=== PATIENT | male | born 1955 | race Caucasian/White ===

== ENCOUNTER → 2018-10-05 | Outpatient (CLI) | payer BC ==
[~2018-10-05] MED LIST: METHADONE5 MG; NORCO; VYVANSE; WELLBUTRIN75 M1; Z FLUOXETINE HCL PO; Z.0.ADDERALL 10 MG10
--- NOTE | 2018-10-05 13:33 | Diagnostic Imaging Report ---
Radiographs of the right hip - 2 views HISTORY: Pain COMPARISON: None available. FINDINGS: Bones: No acute displaced fracture. Osseous alignment is within normal limits. Joints: Scattered degenerative change. No osseous erosion. Soft tissues: The soft tissues appear unremarkable. IMPRESSION: Scattered degenerative change. No osseous erosion. Signed by: Dr. Fabian Nagy M.D. on 10/05/2018 1:30 PM
== END ==
LOC: RAD 11:54
PROVIDERS: ATTEND Internal Medicine
DX: M16.11 Unilateral primary osteoarthritis, right hip (principal)

== ENCOUNTER 2019-10-25 18:07 | Inpatient (IN) | payer BC, OTHER ==
[~2019-10-25] VITALS: Ht 188 cm; Wt 117.9 kg
--- OUTSIDE RECORDS SUMMARY | 2019-10-25 18:12 | XMS REPORT | Continuity of Care Document ---
Author Author [facility] t Organization [facility] Address [address] [place] [address] [place] [phone] Phone Unavailable Care Team Providers Care Dish Machine Operator Name Role Phone JESÚS MONTES Attphys Unavailable Problems This patient has no known problems. Allergies, Adverse Reactions, Alerts This patient has no known allergies or adverse reactions. Medications This patient has no known medications. Procedures This patient has no known procedures. Results Test Description Test Time Test Comments Results Result Comments Source HIP RIGHT 2-3 VW (+/- PELVIS) 2018-10-05 13:29:00 [place] [id number] Patient Name: GONZALEZ KENNEDY MR #: [id number] : 1955 Age/Sex: 63/M Req #: [id number] Adm Physician: Ordered by: JESÚS MONTES MD Report #: [id number] Location: [facility] Room/Bed: Procedure: [id number] DX/HIP RIGHT 2-3 VW (+/- PELVIS) Exam Date: Exam Time: REPORT STATUS: Signed Radiographs of the right hip - 2 views HISTORY: Pain COMPARISON: None available. FINDINGS: Bones: No acute displaced fracture. Osseous alignment is within normal limits. Joints: Scattered degenerative change. No osseous erosion. Soft tissues: The soft tissues appear unremarkable. IMPRESSION: Scattered degenerative change. No osseous erosion. Signed by: Dr. Fabian Nagy M.D. on 10/05/2018 1:30 PM Dictated By: FABIAN NAGY MD, MD 29 Transcribed By: DORIS on 10/05/181329 COPY TO: JESÚS MONTES MD
--- NOTE | 2019-10-25 18:53 | NUR ---
Patient arrived to the floor as a direct admission. Patient is awake alert and oriented x3. He has a dressing to the left foot that is dry and intact. Patient was oriented to the room and explained to him how to use the call light for assistance. He denies needing anything at this time, call light in reach
[2019-10-25 19:31] VITALS: BP 165/102
--- NOTE | 2019-10-25 19:38 | NUR ---
Dr. Schwarz notified of patient's arrival , new orders received.
--- NOTE | 2019-10-25 19:57 | NUR ---
NEW ORDERS RECEIVED BY MD MONTES.
[2019-10-25 20:00] VITALS: BP 165/102
[2019-10-25] MEDS ORDERED: SODIUM CHLORIDE 0.9% 250ML 250 ML ONE (20:22)
--- NOTE | 2019-10-25 20:26 | NUR ---
SPOKE TO MD MONTES. NEW ORDERS RECEIVED.
[2019-10-25] MEDS ORDERED: METHADONE HCL 10 MG TAB PO SCH (20:30)
[2019-10-25 20:37] LABS: BASOPHILS % 0.2 % (0.0-1.0); HEMATOCRIT 35.8 % (38.2-49.6); LYMPHOCYTES # (AUTO) 1.4 (1.0-3.2); LYMPHOCYTES % 10.9 % (18.0-39.1); MEAN CORPUSCULAR HEMOGLOBIN 29.3 pg (28-32); MEAN CORPUSCULAR HGB CONC 33.5 g/dL (31-35); MEAN CORPUSCULAR VOLUME 87.5 fL (81-99); MONOCYTES # (AUTO) 1.1 (0.2-0.8); MONOCYTES % 8.8 % (4.4-11.3); NEUTROPHILS # (AUTO) 10.1 (2.1-6.9); NEUTROPHILS % 79.6 % (38.7-80.0); PLATELET COUNT 254 x10e3/uL (140-360); RED BLOOD COUNT 4.09 x10e6/uL (4.3-5.7); RED CELL DISTRIBUTION WIDTH 12.6 % (11.7-14.4)
[2019-10-25 20:48] LABS: ALANINE AMINOTRANSFERASE 31 IU/L (0-55); ALBUMIN 2.5 g/dL (3.5-5.0); ALBUMIN/GLOBULIN RATIO 0.5 (0.8-2.0); ALKALINE PHOSPHATASE 95 IU/L (40-150); ANION GAP 12.3 mmol/L (8-16); BLOOD UREA NITROGEN 15 mg/dL (7-26); BUN/CREATININE RATIO 16 (6-25); CALCIUM 8.5 mg/dL (8.4-10.2); CARBON DIOXIDE 29 mmol/L (22-29); CHLORIDE 93 mmol/L (98-107); CHOL/HDL RATIO 8.9 (3.9-4.7); CHOLESTEROL 107 MD/DL (0-199); CREATININE, SERUM 0.93 mg/dL (0.72-1.25); EST GLOMERULAR FILTRATION RATE > 60 ML/MIN (60-); GLUCOSE 188 mg/dL (74-118); HDL CHOLESTEROL 12 MG/DL (40-60); LDL CHOLESTEROL 62 MG/DL (60-130); POTASSIUM 3.3 mmol/L (3.5-5.1); SODIUM 131 mmol/L (136-145); TRIGLYCERIDES 165 MG/DL (0-149)
[2019-10-25] MEDS ORDERED: LISINOPRIL 20 MG TAB PO SCH (21:00)
[2019-10-25] MEDS: CEFEPIME 1GM/NS 0.9% 50 ML 50 ML IV SCH (21:06)
[2019-10-25 21:17] VITALS: BP 150/89
[2019-10-25] MEDS: LISINOPRIL 20 MG TAB PO SCH (21:27)
[2019-10-25] MEDS: VANCOMYCIN 1GM/NS 250 ML 250 ML IV SCH (21:49)
--- NOTE | 2019-10-25 22:01 | Diagnostic Imaging Report ---
X-ray left foot. 3 views. HISTORY: Pain. Concern for osteomyelitis COMPARISON: None available. FINDINGS: Bones: No acute displaced fracture. Joints: First MTP osteoarthrosis with joint space loss, osteophyte formation and subchondral sclerosis. Soft tissues: Diffuse soft tissue swelling of the forefoot. A few lucencies projecting over this first metatarsal head region may represent ulceration/soft tissue emphysema. IMPRESSION: Marked soft tissue swelling and probable ulceration at the first MTP of the left foot. No definite radiographic signs of osteomyelitis. Consider a more sensitive evaluation with MRI with and without contrast. Signed by: Chano Ha MD on 10/25/2019 9:58 PM
--- NOTE | 2019-10-25 22:13 | NUR ---
CUPOLA MAN AWARE NEED FOR COVID TEST.
[2019-10-26] VITALS: BP 152/85
[2019-10-26] MEDS ORDERED: PIPER-TAZ 3.375 GM 50 ML IV SCH
[2019-10-26] MEDS ORDERED: LISINOPRIL5 MG PO (00:43)
[2019-10-26] MEDS ORDERED: METHADONE HCL40 MG PO (00:43)
[2019-10-26] MEDS ORDERED: ATORVASTATIN CA20 MG PO (00:43)
[2019-10-26] MEDS ORDERED: METOPROLOL PO (00:43)
--- NOTE | 2019-10-26 03:15 | NUR ---
FOUND PATIENT RESTING IN BED WITH R HAND IV DISCONNECTED CATHETER TIP INTACT. NEW IV STARTED TO R HAND 20G. CDI DRESSING APPLIED. SALINE FLUSH. TOLERATED PROCEDURE WELL. NO ADVERSE SIGNS.
[2019-10-26 04:00] VITALS: BP 121/82
[2019-10-26 06:05] LABS: BASOPHILS % 0.2 % (0.0-1.0); EOSINOPHILS % 0.3 % (0.0-6.0); HEMATOCRIT 37.8 % (38.2-49.6); HEMOGLOBIN 12.2 g/dL (14.0-18.0); LYMPHOCYTES # (AUTO) 2.2 (1.0-3.2); MEAN CORPUSCULAR HEMOGLOBIN 28.8 pg (28-32); MEAN CORPUSCULAR HGB CONC 32.3 g/dL (31-35); MEAN CORPUSCULAR VOLUME 89.4 fL (81-99); MONOCYTES # (AUTO) 1.2 (0.2-0.8); MONOCYTES % 9.3 % (4.4-11.3); NEUTROPHILS # (AUTO) 9.2 (2.1-6.9); NEUTROPHILS % 72.8 % (38.7-80.0); PLATELET COUNT 277 x10e3/uL (140-360); RED BLOOD COUNT 4.23 x10e6/uL (4.3-5.7); RED CELL DISTRIBUTION WIDTH 12.8 % (11.7-14.4)
[2019-10-26 06:20] LABS: ANION GAP 15.2 mmol/L (8-16); BLOOD UREA NITROGEN 14 mg/dL (7-26); BUN/CREATININE RATIO 15 (6-25); CALCIUM 8.6 mg/dL (8.4-10.2); CARBON DIOXIDE 26 mmol/L (22-29); CHLORIDE 96 mmol/L (98-107); CREATININE, SERUM 0.94 mg/dL (0.72-1.25); EST GLOMERULAR FILTRATION RATE > 60 ML/MIN (60-); GLUCOSE 171 mg/dL (74-118); POTASSIUM 3.2 mmol/L (3.5-5.1); SODIUM 134 mmol/L (136-145)
--- NOTE | 2019-10-26 07:11 | NUR ---
REPORT GIVEN TO DAYSHIFT NURSE. ALERT AND RESTING IN BED. NO SIGNS IV INFILTRATION. BED LOCKED AND IN LOW POSITION. CALL LIGHT WITHIN REACH.
[2019-10-26 08:02] VITALS: BP 144/91
[2019-10-26] MEDS ORDERED: DEXTROSE 50% SYRINGE 50 ML IV PRN (08:15)
[2019-10-26 08:23] VITALS: BP 144/91
[2019-10-26] MEDS: CEFEPIME 1GM/NS 0.9% 50 ML 50 ML IV SCH ×2 (08:50→21:31)
--- NOTE | 2019-10-26 08:57 | History and Physical ---
CHIEF COMPLAINT: "My left foot is infected" HISTORY OF PRESENT ILLNESS: This is a 64-year-old white man, who presents to [facility] with a 4-5 day history of worsening right foot redness, pain and swelling. The patient states that initially he began with an infected callus on the plantar aspect of his left foot. The patient states that in last couple of days the wound has become ulcerated and the surrounding erythema and swelling has worsened. He also complains of subjective fever. He denies any chills. The patient was seen by his commercial collector, namely Dr. Galvan yesterday on Friday, October 25, 2019 and was sent to the [facility] Emergency Room. The patient had a plain film of the foot on admission of the left foot that revealed marked soft tissue swelling and probable ulceration of the 1st MTP of the left foot. The radiologist did not appreciate any obvious evidence of osteomyelitis. In the emergency room [place] [address] with 79% segmented neutrophils. Hemoglobin 12 g/dL. Platelet count 254,000. Sedimentation rate 91. The patient's BUN and creatinine are 15 and 0.93 respectively. Potassium is 3.3. The patient was found to have hemoglobin A1c of 8%. The patient's LDL cholesterol is 62 mg/dL. Triglycerides 165 mg/dL. AST and ALT of 46 and 31 respectively. The patient was admitted for further evaluation and treatment. Of note, at the commercial collector's office, the left plantar abscess was incised and drained. Apparently, copious amount of brownish purulent blood tinged drained from this foot abscess. Cultures were sent from the commercial collector's office. REVIEW OF SYSTEMS: GENERAL: Weight has been stable. He has had fever for past few days. No chills. HEENT: No headaches. No visual changes. CARDIOVASCULAR/RESPIRATORY: No chest pain. No shortness of breath. No cough. GI: No nausea, vomiting, or constipation. : No dysuria, hematuria, or incontinence. Denies any nocturia. NEUROMUSCULAR: The patient has severe neuropathy in his bilateral feet and is currently on methadone treatment for pain control concerning this condition. The patient has worsening redness, swelling and pain in the left foot for the past 4-5 days. ALLERGIES: NO KNOWN DRUG ALLERGIES. HOME MEDICATIONS: 1. Atorvastatin 40 mg at bedtime. 2. Lisinopril 20 mg daily. 3. Methadone 40 mg b.i.d. 4. Metoprolol succinate 25 mg daily. 5. Diazepam 5 mg daily prn anxiety. PAST SURGICAL HISTORY: 1. Right inguinal hernia repair. 2. Tonsillectomy. FAMILY HISTORY: His mother suffered from type 2 diabetes mellitus with severe diabetic peripheral neuropathy. His mother also suffered from recurrent diabetic foot ulcers. His mother from congestive heart failure and chronic kidney disease. SOCIAL HISTORY: He is a . He is caring for his two teenage grandchildren. He smokes tobacco sporadically, but chews tobacco on a regular basis. The patient drinks alcohol rarely. The patient is retired. PAST MEDICAL HISTORY: 1. Hypertensive heart disease. 2. Severe peripheral neuropathy. 3. Type 2 diabetes mellitus. 4. Hyperlipidemia. 5. Mild obesity. 6. Tobacco use. 7. Lumbar disc disease. 8. Right hip osteoarthritis. PHYSICAL EXAMINATION: GENERAL: He is awake, alert, fluent, in no distress, very pleasant, very cooperative with exam. VITAL SIGNS: Height 6 feet 2 inches, weight is 260 pounds, BMI 33. Blood pressure was 160/100 yesterday on admission, currently 120/80, pulse is 110 on admission, currently it is 88, respiratory rate 18, temperature is 98.9, but temperature did get as high as 99.7 last night. Ox saturation 98% on room air. INTEGUMENT: Skin is warm and dry. No pallor, jaundice, or diaphoresis. HEENT: Anicteric sclerae. Moist mucous membranes. NECK: Supple. CARDIOVASCULAR: Distant heart sounds. Tachycardic rate, regular rhythm. The patient has S4 gallop. LUNGS: No rales. No rhonchi or wheezes. ABDOMEN: Mildly obese, benign. EXTREMITIES: The patient has an ulcerated wound on the plantar aspect of the left first metatarsal head. There is significant surrounding erythema, swelling and tenderness. NEUROLOGIC: He has no pinprick sensation in the plantar aspect of his feet. DIAGNOSES: 1. Sepsis secondary to left diabetic foot ulcer. 2. Left diabetic foot ulcer with surrounding cellulitis. 3. Type 2 diabetes mellitus with severe neuropathy. 4. Hypertensive heart disease. PLAN: 1. Highly recommend tobacco cessation. 2. Intravenous antibiotics. 3. Tentative incision and drainage of the left diabetic foot ulcer by the commercial collector later this morning. 4. MRI of the left foot. 5. Blood pressure control. 6. Blood glucose control. 7. Pain control. I spent an hour in the care of the patient. MD CITLALY Mercer/BREANNA /[id number] MTDJay
[2019-10-26] MEDS: METHADONE HCL 10 MG TAB PO SCH ×2 (09:00→17:00)
--- NOTE | 2019-10-26 09:22 | Diagnostic Imaging Report ---
EXAM: CHEST SINGLE (PORTABLE) DATE: 10/26/2019 9:01 AM INDICATION: Osteomyelitis, hypertension COMPARISON: None FINDINGS: Lung volumes are low/there is poor inspiratory effort. The trachea is midline. Minimal bibasilar opacities suggestive of atelectasis. The lungs are otherwise symmetrically expanded without evidence for large focal consolidation, pneumothorax, or significant volume pleural effusion. The cardiomediastinal silhouette and pulmonary vasculature are within normal limits. No acute osseous abnormality is identified. IMPRESSION: No acute cardiopulmonary process identified. Signed by: Dr. Juan Prajapati MD on 10/26/2019 9:18 AM
[2019-10-26] MEDS ORDERED: GADOBENATE DIMEGLUMINE 1 ML IV ONE (09:26)
[2019-10-26] MEDS: VANCOMYCIN 1GM/NS 250 ML 250 ML IV SCH (09:29)
[2019-10-26] MEDS ORDERED: BUPIVACAINE HCL 0.5% INJ 30 ML VIAL INJ ONE (10:49)
[2019-10-26] MEDS ORDERED: DEXAMETHASONE SOD PHOS 10 MG/1 ML VIAL ONE (10:49)
[2019-10-26] MEDS ORDERED: BACITRACIN 50,000 UNIT VIAL ONE (10:49)
[2019-10-26] MEDS ORDERED: PROPOFOL IV EMULSION 10 MG/ML 20 ML VIAL ONE (10:52)
[2019-10-26] MEDS ORDERED: SEVOFLURANE INHAL SOLN 250 ML PEN BTL ONE (10:52)
[2019-10-26] MEDS ORDERED: KETOROLAC TROMETHAMINE 30 MG/ML VIAL ONE (10:52)
[2019-10-26] MEDS ORDERED: LIDOCAINE HCL 2% LOCAL INJ 5 ML SDV VIAL INJ ONE (10:52)
[2019-10-26] MEDS ORDERED: ONDANSETRON HCL INJ 2MG/ML 2ML 2 MG/ML VIAL ONE (10:52)
[2019-10-26] MEDS: INSULIN LISPRO 100 UNIT/1 ML 3ML VIAL SQ SCH ×3 (11:30→21:30)
--- NOTE | 2019-10-26 13:38 | Operative Report ---
DATE OF PROCEDURE: 10/26/2019 SURGEON: James Galvan DPM (Char[place]) PREOPERATIVE DIAGNOSIS: Abscess, cellulitis, left foot. POSTOPERATIVE DIAGNOSIS: Abscess, cellulitis, left foot. OPERATIVE PROCEDURE: Extensive I and D, left foot. DESCRIPTION OF PROCEDURE: The patient was placed on the OR table in the supine position. The left lower extremity was prepped and draped in the usual manner. A general anesthetic was administered and hemostasis accomplished using a pneumatic cuff set at 350 mmHg at thigh level. An incision was made on the dorsal medial aspect of the 1st metatarsophalangeal joint extending back to about the distal half of the 1st metatarsal. The incision was deepened. A large amount of purulent exudate was removed with suction. Cultures and sensitivities were taken. With curved mosquito, I probed the wound and I was able to open up an area between the 1st and 2nd metatarsal heads and extending back almost to the distal 1/2 of the metatarsal. Second incision was made on the plantar aspect. The skin was then dissected away from the capsule and the tendons on the plantar aspect. Using a mosquito, the area was probed and opened on both the medial and lateral aspect of the metatarsal head. There was tunneling that went to the wound on top, this was opened also. At this time, the wound was flushed extensively with the Pulsavac with bacitracin antibiotic. The wound was then packed with iodoform gauze. It was left open. Betadine wet-to-dry dressing was placed. At this time, a sterile compression dressing was applied. The pneumatic cuff was then released and a reflex hyperemia was observed to all digits. The patient tolerated the procedure and anesthesia well and left the OR back to his room in good condition with vital signs stable. James Galvan DPM (Charley) SH/MODL /[id number]
--- NOTE | 2019-10-26 14:04 | NUR ---
WOUND CARE CONSULT FOR 64 YO MALE HX OF diabeties, acute osteo TREMAYNE 20 ON CONSERVATIVE PUP STATUS AND INTERVENTIONS AND VISCO MATTRESS LABS: WBC-12.68 HGB_12.2 GLUCOSE-171 SKIN ASSESSMENT COMPLETE PATIENT PRESENTS WITH LEFT FOOT OSTEOMYELITIS LEFT TRANS MET HEAD ULCERATION 3CM X2CM X2CM LEFT POSTERIOR PLANTAR SURFACE ULCERATION 2CM X2CM X1CM DR CORCORAN TO TAKE PATIENT TO SURG FOR I&D TO LEFT FOOT AREAS RECOMMENDATIONS: NURSING TO CONTINUE TO MAINTAIN CONSERVATIVE PUP STATUS AND INTERVENTIONS AND VISCO MATTRESS NURSING TO CONTINUE TO ASSIST PATIENT OUT OF BED FOR MEALS AND MUCH TOLERATED NURSING TO CONTINUE TO ASSIST PATIENT NEEDED WITH MEALS AND NUTRITIONAL SUPPLEMENTS TO ENSURE PROPER REQUIREMENTS FOR HEALING NURSING TO CONTINUE TO OFFLOAD FEET AND HEELS NEEDED WITH PILLOW SUSPENSION WHEN IN BED NURSING TO RECONSULT WOUND CARE FOR ANY POST SURGICAL NEEDS DEEMED BY Addendum: 10/26/19 at 1410 by Tyler Eden RN Amended: Links added.
--- NOTE | 2019-10-26 14:55 | NUR ---
Patient arrived back to the floor from PACU and MRI. S/P I and D to left foot, dressing is dry and intact
[2019-10-26] MEDS ORDERED: METOPROLOL SUCC25 MG PO (15:46)
--- NOTE | 2019-10-26 15:55 | Diagnostic Imaging Report ---
TECHNIQUE: Magnetic resonance imaging of the LEFT foot was performed WITH and WITHOUT injected contrast. CONTRAST: 20 mL of Multihance HISTORY: Left foot osteomyelitis COMPARISON: Left foot radiographs 10/25/2019 DISCUSSION: Bone: Cortical destruction with bone marrow edema, T1 hypointense replacement, and scattered areas of enhancement along the plantar aspect at the head of the first metatarsal and adjacent base of the first proximal phalanx, compatible with osteomyelitis. Similar signal changes of osteomyelitis involving the hallux sesamoid bones. Curvilinear T2 hyperintense, T1 hypointense bone marrow signal changes tracking through the medullary cavity to the head of the first proximal phalanx distally and to the base of the first metatarsal proximally. No avid enhancement correlating to these bone marrow signal changes. Findings may represent medullary infarcts however remain suspicious for extension of osteomyelitis. Joints: No joint malalignment or dislocation. Complex fluid and extensive enhancement throughout the first MTP joint, consistent with septic arthritis. No additional joint effusions. Ligaments/tendons: Collateral ligaments of the first MTP joint are poorly visualized secondary to extensive surrounding inflammatory changes. Remaining visualized intrinsic ligaments of the forefoot appear grossly intact. Extensor hallucis longus tendon is not well visualized as it courses dorsal to the first MTP joint, may be torn or focally destroyed by extensive infection. Flexor hallucis longus tendon is torn and/or destroyed by infection at the level of the first MTP joint with discontinuity measuring approximately 3 cm in length. Remaining flexor and extensor tendons appear grossly intact. However, fluid tracking along the flexor tendons proximally, may represent reactive changes or infectious tenosynovitis. Soft Tissues: Plantar soft tissue ulcer underlying the first MTP joint and tracking between the hallux sesamoid bones to the first MTP joint and head of the first metatarsal. Similar superficial soft tissue irregularity along the medial aspect of the first MTP joint, may represent additional ulcer or postsurgical change. Extensive soft tissue edema and enhancement surrounding the first MTP joint and tracking proximally to the base of the first tarsal, consistent with reactive changes and/or cellulitis. Diffuse muscular edema throughout the forefoot, likely represents a combination of reactive changes and/or infectious myositis. IMPRESSION: 1. Plantar soft tissue ulcer with associated septic arthritis of the first MTP joint and osteomyelitis at the head of the first metatarsal, adjacent base of the first proximal phalanx, and hallux sesamoid bones. 2. Additional bone marrow signal changes without avid enhancement tracking through the medullary cavity of the first proximal phalanx and first metatarsal, may represent bone marrow infarcts and/or early extension of osteomyelitis. 3. Extensive soft tissue edema and enhancement surrounding the first MTP joint and extending proximally to the base of the first metatarsal, likely represents a combination of reactive changes, cellulitis, and possible infectious myositis. 4. Focal discontinuity of the flexor hallucis longus tendon and possibly the extensor hallucis longus tendon, likely related to focal destruction from infection. Additional fluid tracking along the remaining flexor tendons, may represent reactive changes or infectious tenosynovitis. Signed by: Kulwinder Woodard MD on 10/26/2019 3:52 PM
[2019-10-26 16:15] VITALS: BP 121/86
[2019-10-26] MEDS: METFORMIN HCL 500 MG TAB PO SCH (16:51)
[2019-10-26] MEDS: LISINOPRIL 20 MG TAB PO SCH (16:52)
--- NOTE | 2019-10-26 19:25 | NUR ---
BEDSIDE SHIFT REPORT RECEIVED. PATIENT IS RESTING IN BED, AAOX3. RESP EVEN AND UNLABORED. NO ACUTE DISTRESS NOTED. S/P I&D TO 1ST LEFT TOE, DRESSING DRY AND INTACT. EDUCATED PT ABOUT FALL PRECAUTIONS. PT VERBALIZED UNDERSTANDING. CALL LIGHT WITH IN EASY REACH. INSTRUCTED PT TO USE CALL LIGHT FOR ALL THE NEEDS. BED IS LOW AND LOCKED. SIDE RAILS X2. PT DENIES NEEDS AT THIS TIME. CONTINUE TO MONITOR CLOSELY.
[2019-10-26] MEDS ORDERED: MORPHINE SULFATE INJ 10 MG/ML ONE (19:30)
[2019-10-26] MEDS ORDERED: POTASSIUM CHLORIDE 20 MEQ TAB CR PO SCH (19:30)
[2019-10-26] MEDS ORDERED: MIDAZOLAM HCL 2 MG/2 ML VIAL ONE (19:30)
[2019-10-26 20:00] VITALS: BP 122/74
[2019-10-26] MEDS ORDERED: POTASSIUM CHLORIDE 20 MEQ TAB CR PO ONE (21:00)
[2019-10-26] MEDS ORDERED: VANCOMYCIN 1GM/NS 250 ML 250 ML IV SCH (22:15)
[2019-10-26] MEDS: CEFEPIME 2 GM/NS 0.9% 100 ML 100 ML IV SCH (23:58)
[2019-10-27] VITALS (9 sets, daily range): BP systolic 131–171; BP diastolic 77–91
--- NOTE | 2019-10-27 03:30 | NUR ---
PATIENT REFUSED BED ALARM
[2019-10-27 06:16] LABS: BASOPHILS % 0.3 % (0.0-1.0); EOSINOPHILS # (AUTO) 0.1 (0.0-0.4); EOSINOPHILS % 0.7 % (0.0-6.0); HEMOGLOBIN 10.7 g/dL (14.0-18.0); LYMPHOCYTES # (AUTO) 2.3 (1.0-3.2); LYMPHOCYTES % 19.5 % (18.0-39.1); MEAN CORPUSCULAR HGB CONC 31.5 g/dL (31-35); MEAN CORPUSCULAR VOLUME 92.1 fL (81-99); MONOCYTES % 8.5 % (4.4-11.3); NEUTROPHILS # (AUTO) 8.3 (2.1-6.9); NEUTROPHILS % 70.4 % (38.7-80.0); PLATELET COUNT 224 x10e3/uL (140-360); RED BLOOD COUNT 3.69 x10e6/uL (4.3-5.7); RED CELL DISTRIBUTION WIDTH 13.2 % (11.7-14.4)
[2019-10-27 06:36] LABS: ALANINE AMINOTRANSFERASE 28 IU/L (0-55); ALBUMIN 2.1 g/dL (3.5-5.0); ALBUMIN/GLOBULIN RATIO 0.5 (0.8-2.0); ALKALINE PHOSPHATASE 107 IU/L (40-150); ANION GAP 10.1 mmol/L (8-16); BLOOD UREA NITROGEN 16 mg/dL (7-26); BUN/CREATININE RATIO 18 (6-25); CARBON DIOXIDE 30 mmol/L (22-29); CHLORIDE 102 mmol/L (98-107); CREATININE, SERUM 0.87 mg/dL (0.72-1.25); EST GLOMERULAR FILTRATION RATE > 60 ML/MIN (60-); GLUCOSE 115 mg/dL (74-118); POTASSIUM 4.1 mmol/L (3.5-5.1); SODIUM 138 mmol/L (136-145)
--- NOTE | 2019-10-27 06:52 | NUR ---
RECEIVED BEDSIDE SHIFT REPORT FROM OFF GOING NURSE. PATIENT IS IN STABLE CONDITION, IV LINE PATENT. CALL LIGHT WITHIN REACH. BED IN THE LOWEST POSITION.
[2019-10-27] MEDS: INSULIN LISPRO 100 UNIT/1 ML 3ML VIAL SQ SCH ×4 (07:30→20:53)
[2019-10-27] MEDS: ACETAMINOPHEN 325 MG TAB PO PRN (08:50)
[2019-10-27] MEDS: LISINOPRIL 20 MG TAB PO SCH ×2 (08:51→16:41)
[2019-10-27] MEDS: METHADONE HCL 10 MG TAB PO SCH ×2 (08:51→16:42)
[2019-10-27] MEDS: METFORMIN HCL 500 MG TAB PO SCH ×2 (08:51→16:41)
[2019-10-27] MEDS ORDERED: DESVENLAFAXINE SUCCINATE 50 MG TAB.SR.24H PO SCH (09:45)
--- NOTE | 2019-10-27 09:47 | Progress Note ---
DATE: 10/27/2019 SUBJECTIVE: This is a 64-year-old male with past medical history of type 2 diabetes, peripheral neuropathy, who is postoperative day #1, left foot incision and drainage procedure. The patient relates to minimal soreness to his left foot at this time. Currently, denies nausea, vomiting, fever, chills, chest pain, or shortness of breath. No other pedal complaints and no acute issues overnight. PHYSICAL EXAMINATION: GENERAL: Alert and oriented x3, in no apparent distress. VITAL SIGNS: Temperature 100.2, heart rate 86, respiratory rate 20, blood pressure 137/86, pulse ox is 98% on room air. EXTREMITIES: Problem focused lower extremity physical exam, vascular, dorsalis pedis and posterior tibial pulses are faintly palpable to the left lower extremity greater than 2 cm of erythema, edema, and warmth are noted at the patient's 1st MPJ. Hair growth is noted to the digits. NEUROLOGICAL: Sensation is absent to light touch bilateral. MUSCULOSKELETAL: Mild pain on palpation to the left 1st metatarsophalangeal joint. DERMATOLOGICAL: Deep probing ulceration is noted to the plantar aspect of the patient's left 1st metatarsophalangeal joint, which is fibrotic. Incision site is noted to the dorsal aspect of the patient's left 1st metatarsophalangeal joint. Upon removal of packing, there is necrotic tissue, which probes deep to the level of bone and down the 1st interspace. There continues to be greater than 2 cm of dawn-wound erythema, edema, and warmth. LABORATORY DATA: White blood cell count is 11.7, hemoglobin 10.7, hematocrit 34.0, and platelet count 224. Sedimentation rate is 91. Sodium 138, potassium 4.1, chloride 102, CO2 30, BUN 16 and creatinine 0.87, glucose 125. Hemoglobin A1c is 8.0. Coronavirus not detected. MRI reveals soft tissue ulcer with associated septic arthritis of the 1st metatarsal joint, osteomyelitis of the head of the 1st metatarsal, base of the proximal phalanx, hallux, and sesamoid bones. Bone marrow signal changes are noted through the medullary cavity of the entire 1st metatarsal, which may be indicative of osteomyelitis to the entire 1st metatarsal. Focal discontinuity of the flexor hallucis longus and extensor hallucis longus tendon, likely due to septic joint and previous infection tracking up tendons. ASSESSMENT: 1. Left foot septic 1st metatarsophalangeal joint with osteomyelitis of the 1st metatarsal. 2. Type 2 diabetes with peripheral neuropathy. 3. Hypertension. 4. Hyperlipidemia. PLAN: The patient was seen and evaluated, discussed condition and treatment options with the patient in detail. At this time, the dressing was changed in a Betadine wet-to-dry fashion while packing the wounds. At this time, we will continue current antibiotics with vancomycin and cefepime. I had a lengthy discussion with the patient about amputation followed by IV antibiotics and local wound care as a method of limb salvage. The patient agrees and understands. ARELI Weinstein/BREANNA /[id number]
[2019-10-27] MEDS: CEFEPIME 2 GM/NS 0.9% 100 ML 100 ML IV SCH ×2 (10:11→21:55)
--- NOTE | 2019-10-27 10:23 | Progress Note ---
DATE: 10/27/2019 CHIEF COMPLAINT/HISTORY OF PRESENT ILLNESS: This is a 64-year-old white man, whose primary treating diagnosis is acute left foot osteomyelitis. The patient underwent incision and drainage of the left foot abscess yesterday on 10/26/2019. This was performed by his c winforms developer, namely Dr. Galvan. The patient tolerated the procedure quite well. Cultures were sent, but they are still pending. His blood cultures have not reveal any growth. The patient's white blood cell count today is 11,700 with 70% segmented neutrophils. Hemoglobin 10.7 g/dL. Sedimentation rate 91. The patient's BUN and creatinine today 16 and 0.87. The patient's serum glucose is 125 mg/dL. The patient underwent an MRI of the left foot yesterday on , October 26, 2019, which revealed findings consistent with osteomyelitis of the left 1st metatarsal bone as well as septic arthritis in the 1st metatarsophalangeal joint. The MRI revealed findings consistent with osteomyelitis invading into the bone marrow of the 1st proximal phalanx and 1st metatarsal. It also appears that his tendons are also involved. The patient voices no complaints today. He is somewhat somnolent, but according to nursing staff, he received his oral methadone this morning. During this hospitalization, he was found to have a hemoglobin A1c of 8%. His LDL cholesterol is 62 mg/dL. HDL cholesterol is 12 mg/dL. Triglycerides 165 mg/dL. Yesterday, the patient's lactic acid level was 1.0 and repeated 4 hours later, it was 1.6. REVIEW OF SYSTEMS: As per HPI. PHYSICAL EXAMINATION: GENERAL: He is somnolent, but arousable. He did not appear to be in any distress. He has a flat depressed affect. VITAL SIGNS: Height 6 feet and 2 inches, weight is 260 pounds, BMI 33. Blood pressure is 130/86, pulse 86, respiratory rate 18, oxygen 92% on room air, temperature 100.2. INTEGUMENT: Skin is warm and dry. No pallor, jaundice, and diaphoresis. HEENT: Anterior sclerae with moist mucous membranes. NECK: Supple. CARDIOVASCULAR: Distant heart sounds. Tachycardic rate, regular and rhythm. The patient has an S4 gallop. LUNGS: No rales, rhonchi, or wheezes. ABDOMEN: Mildly obese, yet benign. EXTREMITIES: Left foot is currently dressed. No edema in legs. NEUROLOGIC: He has no pinprick sensation to plantar aspect of his feet. DIAGNOSES: 1. Sepsis secondary to left foot osteomyelitis with surrounding cellulitis. 2. Left foot (1st metatarsal) osteomyelitis with surrounding cellulitis. 3. Severe idiopathic peripheral neuropathy. 4. Type 2 diabetes mellitus. 5. Hypertensive heart disease. 6. Situational depression/major depressive disorder. PLAN: 1. Continue intravenous antibiotics, namely cefepime and vancomycin. 2. Increase vancomycin from 1 g every 12 hours to 1.25 mg intravenous every 12 hours. 3. Increase cefepime from 1 g intravenous every 12 hours to 2 g intravenous every 12 hours. 4. We will start atorvastatin 20 mg every night since he may have peripheral artery disease. 5. Continue lisinopril for blood pressure control. 6. Continue metformin 500 mg twice a day for glucose control. 7. Monitor glucose levels. 8. Empathetic listening. 9. Reassurance. 10. Informed the patient that he would likely benefit from an antidepressant due to his situational depression. 11. We will order a peripherally inserted central catheter since the patient will likely require outpatient intravenous antibiotic therapy for a minimum of six weeks. 12. I discussed this case with Dr. Galvan, this morning concerning long-term intravenous antibiotic therapy and discharge planning. TIME SPENT: I spent 45 minutes in the care of this patient. MD CITLALY Mercer/BREANNA /[id number] MALATHI
--- NOTE | 2019-10-27 11:00 | NUR ---
GERMAN WITH INSURANCE DISCHARGE PLANNING CALLED AND GAVE [phone] FOR ANY ASSISTANCE.
[2019-10-27] MEDS: VANCOMYCIN HCL 1.25 GM in SODIUM CHLORIDE 0.9% 250ML 250 ML IV SCH ×2 (11:30→22:55)
--- NOTE | 2019-10-27 18:50 | NUR ---
PICC LINE NURSE IN TO PLACE LINE ON PATIENT. PATIENT BEING AGGRESSIVE AND VERY DISRESPECTFUL. HE YELLED AT PICC NURSE AND FLOOR NURSE. HE ASKED BOTH OF US TO "GET THE F OUT OF THE ROOM". BOTH PICC NURSE AND FLOOR NURSE LEFT THE ROOM. DR. MONTES NOTIFIED.
--- NOTE | 2019-10-27 19:03 | NUR ---
attempted to set up and place PICC on pt with RN Adina Britt present, opened kit and pt proceeded to want to stop procedure and re-read consent, pt started getting out of bed and yelled at both myself and staff adina Tracey, pt directly told me to get out of the room and I can come back tommorrow and do line for all he cares, pt very upset, not cooperating for line placement, again, nurse Adina Britt present to witness situation, told nurse Holden to call DIT back once and if pt agrees and becomes cooperative for PICC placement
--- NOTE | 2019-10-27 19:34 | NUR ---
BEDSIDE SHIFT REPORT GIVEN TO ONCOMING NURSE. PATIENT IS RESTING IN BED. NO ACUTE DISTRESS NOTED. CALL LIGHT WITHIN REACH. BED IN THE LOWEST.
--- NOTE | 2019-10-27 20:20 | NUR ---
SPOKE WITH DR. CORCORAN REGARDING PATIENT'S PROCEDURE. HE VOICED THAT HE WILL PERSONALLY BE THERE IN THE MORNING TO SPEAK WITH THE PATIENT AND HIS SON IN DETAIL. DR. CORCORAN ALSO SPOKE WITH PATIENT ON PHONE TO CONFIRM.
[2019-10-27] MEDS: ATORVASTATIN 20 MG TAB PO SCH (21:00)
--- NOTE | 2019-10-27 21:50 | NUR ---
PATIENT RESTING IN BED, NO SIGNS OF DISTRESS NOTED. IV ANTIBIOTICS ARE RUNNING AT ORDERED RATE AND PATIENT VOICES NO PAIN AT THIS TIME. LEFT FOOT IS WRAPPED, DRESSING IS CLEAN, DRY, AND INTACT. BED IS IN LOWEST POSITION, BOTH SIDE RAILS ARE UP, CALL LIGHT IS WITHIN EASY REACH, WILL CONTINUE TO MONITOR.
[2019-10-28] VITALS (7 sets, daily range): BP systolic 98–164; BP diastolic 41–95
[2019-10-28 05:59] LABS: BASOPHILS % 0.3 % (0.0-1.0); EOSINOPHILS # (AUTO) 0.2 (0.0-0.4); EOSINOPHILS % 1.8 % (0.0-6.0); HEMATOCRIT 34.9 % (38.2-49.6); HEMOGLOBIN 11.3 g/dL (14.0-18.0); LYMPHOCYTES # (AUTO) 2.3 (1.0-3.2); LYMPHOCYTES % 19.4 % (18.0-39.1); MEAN CORPUSCULAR HEMOGLOBIN 30.2 pg (28-32); MEAN CORPUSCULAR HGB CONC 32.4 g/dL (31-35); MEAN CORPUSCULAR VOLUME 93.3 fL (81-99); MONOCYTES # (AUTO) 0.9 (0.2-0.8); MONOCYTES % 7.8 % (4.4-11.3); NEUTROPHILS # (AUTO) 8.4 (2.1-6.9); NEUTROPHILS % 69.8 % (38.7-80.0); PLATELET COUNT 247 x10e3/uL (140-360); RED BLOOD COUNT 3.74 x10e6/uL (4.3-5.7); RED CELL DISTRIBUTION WIDTH 13.1 % (11.7-14.4)
[2019-10-28 06:18] LABS: ANION GAP 12.8 mmol/L (8-16); BLOOD UREA NITROGEN 10 mg/dL (7-26); BUN/CREATININE RATIO 13 (6-25); CALCIUM 8.5 mg/dL (8.4-10.2); CARBON DIOXIDE 28 mmol/L (22-29); CHLORIDE 103 mmol/L (98-107); CREATININE, SERUM 0.75 mg/dL (0.72-1.25); EST GLOMERULAR FILTRATION RATE > 60 ML/MIN (60-); GLUCOSE 96 mg/dL (74-118); POTASSIUM 3.8 mmol/L (3.5-5.1); SODIUM 140 mmol/L (136-145)
--- NOTE | 2019-10-28 07:20 | NUR ---
The pt. is in bed awake. The off-going nurse reports that the pt.in willing to have the PICC line placed today.
[2019-10-28] MEDS: INSULIN LISPRO 100 UNIT/1 ML 3ML VIAL SQ SCH ×4 (07:30→22:30)
[2019-10-28] MEDS: METFORMIN HCL 500 MG TAB PO SCH ×2 (08:46→17:08)
[2019-10-28] MEDS: LISINOPRIL 20 MG TAB PO SCH ×2 (08:46→17:10)
[2019-10-28] MEDS: METHADONE HCL 10 MG TAB PO SCH ×2 (08:46→17:09)
--- NOTE | 2019-10-28 09:42 | NUR ---
Dr. Galvan here and spoke with the pt about the PICC line placement, pending surgery and also changed the dressing at this time.
[2019-10-28] MEDS: CEFEPIME 2 GM/NS 0.9% 100 ML 100 ML IV SCH ×2 (10:59→22:30)
[2019-10-28] MEDS: VANCOMYCIN HCL 1.25 GM in SODIUM CHLORIDE 0.9% 250ML 250 ML IV SCH ×2 (10:59→23:24)
--- NOTE | 2019-10-28 15:32 | NUR ---
PT GETTING PICC LINE PLACED, UNABLE TO DO DPA AT PRESENT
--- NOTE | 2019-10-28 16:02 | Diagnostic Imaging Report ---
EXAMINATION: CHEST XRAY LINE PLACEMENT INDICATION: PICC line placement with verification of position. COMPARISON: 10/26/2019. FINDINGS: TUBES and LINES: Interval placement of a right upper extremity PICC with distal tip projected at the cavoatrial junction, in adequate position. LUNGS: Lungs are well inflated. Increased density about the right hilum, unchanged. Slight prominence of the central pulmonary vasculature. PLEURA: No pleural effusion or pneumothorax. HEART AND MEDIASTINUM: The cardiomediastinal silhouette is unremarkable. BONES AND SOFT TISSUES: No acute osseous lesion. Soft tissues are unremarkable. UPPER ABDOMEN: No free air under the diaphragm. IMPRESSION: Interval placement of a right upper extremity PICC with distal tip projected at the cavoatrial junction, in adequate position. Signed by: Dr. Rajwinder Link M.D. on 10/28/2019 3:59 PM
--- NOTE | 2019-10-28 17:40 | Progress Note ---
DATE: Internal Medicine progress Note. SUBJECTIVE: The patient is in no complaint. PHYSICAL EXAMINATION: VITAL SIGNS: Blood pressure 148/88, temperature 97.9, heart rate 90 per minute, respiratory rate 20 per minute, oxygen saturation 95%. HEART: Regular rhythm. Normal S1, S2. LUNGS: Clear bilaterally. ABDOMEN: Soft. EXTREMITIES: Show no edema except for the left foot. LABORATORY DATA: Coronavirus test is not detected. LABORATORY DATA: CBC, white blood count 11.99, hemoglobin 11.3, hematocrit 34.9, platelet count 247,000. On the BMP; sodium 140, potassium 3.8, chloride 103, CO2 of 28, BUN 10, creatinine 0.75, glucose 184, calcium 8.6. Vancomycin level 5.4. MICROBIOLOGY: Blood culture negative for 48 hours. Gram stain of the wound culture negative growth, Staphylococcus aureus, which is still a preliminary report. IMPRESSION: 1. Osteomyelitis of the foot. 2. Uncontrolled hypertension. 3. Anemia of chronic disease. 4. Sepsis. 5. Peripheral neuropathy. 6. Hypertensive heart disease. PLAN OF TREATMENT: Continue with current IV antibiotic therapy, which includes cefepime 2 g IV twice a day, vancomycin 1.25 g IV twice a day, Tylenol 650 mg q.6 hours as needed, Lipitor 20 mg at bedtime. Continue to monitor blood sugar a.c. and at bedtime. Lisinopril 20 mg twice a day, metformin 500 mg twice a day, methadone 40 mg twice a day. TIME SPENT: 45 minutes. MD AUDI Shearer/BREANNA /[id number]
--- NOTE | 2019-10-28 20:15 | NUR ---
PATIENT RESTING IN BED, NO SIGNS OF DISTRESS NOTED. NEW PICC LINE INTACT WITH IV ANTIBIOTICS ARE RUNNING AT ORDERED RATE AND PATIENT VOICES NO PAIN AT THIS TIME. LEFT FOOT IS WRAPPED, DRESSING IS CLEAN, DRY, AND INTACT. BED IS IN LOWEST POSITION, BOTH SIDE RAILS ARE UP, CALL LIGHT IS WITHIN EASY REACH, WILL CONTINUE TO MONITOR.
--- NOTE | 2019-10-28 20:30 | Progress Note ---
DATE: 10/28/2019 He is admitted to Dr. Vinny Schwarz. The patient was resting comfortably in bed. He did relate [id number] pain in his left foot. On clinical exam, the foot still is very swollen, erythematous. It is not as hot as usual. The patient is afebrile. His blood pressure is a little elevated. His labs, the white blood count was 12, and on micro, he has grown Staph aureus. The foot was re-dressed with Betadine wet-to-dry dressing. I discussed in detail with the patient the plan for going forward on Wednesday indicated that we would take about half of the distal aspect of the 1st metatarsal and the entire 1st toe. We will evaluate the wound at that time to be sure it has not migrated to the 2nd metatarsal head. my plan is to put vancomycin beads in the wound and also put some in the medullary canal of the 1st metatarsal. The patient is okay with this. He understands that there is a fair chance that this may not heal and further amputation will be necessary. I also advised him that if somebody in his family would like to talk with me, they are welcome to call. S ARELI Toure (Charley)/BREANNA /[id number]
[2019-10-28] MEDS: ATORVASTATIN 20 MG TAB PO SCH (22:30)
[2019-10-29] VITALS (8 sets, daily range): BP systolic 118–157; BP diastolic 75–91
[2019-10-29] MEDS: INSULIN LISPRO 100 UNIT/1 ML 3ML VIAL SQ SCH ×4 (07:30→21:50)
--- NOTE | 2019-10-29 07:45 | NUR ---
The pt. has been consented for planned procedure with Dr. Cornejo on 10/30/2019. He offers no complaint or concerns at this time.
[2019-10-29] MEDS: METFORMIN HCL 500 MG TAB PO SCH ×2 (09:03→16:57)
[2019-10-29] MEDS: METHADONE HCL 10 MG TAB PO SCH ×2 (09:04→16:57)
[2019-10-29] MEDS: LISINOPRIL 20 MG TAB PO SCH ×2 (09:05→16:57)
[2019-10-29] MEDS: CEFEPIME 2 GM/NS 0.9% 100 ML 100 ML IV SCH ×2 (10:38→23:20)
[2019-10-29] MEDS: VANCOMYCIN HCL 1.25 GM in SODIUM CHLORIDE 0.9% 250ML 250 ML IV SCH ×2 (10:38→23:51)
[2019-10-29 10:49] LABS: BASOPHILS % 0.4 % (0.0-1.0); EOSINOPHILS # (AUTO) 0.4 (0.0-0.4); EOSINOPHILS % 3.6 % (0.0-6.0); HEMATOCRIT 34.8 % (38.2-49.6); HEMOGLOBIN 10.7 g/dL (14.0-18.0); LYMPHOCYTES # (AUTO) 2.4 (1.0-3.2); LYMPHOCYTES % 23.4 % (18.0-39.1); MEAN CORPUSCULAR HEMOGLOBIN 28.9 pg (28-32); MEAN CORPUSCULAR HGB CONC 30.7 g/dL (31-35); MEAN CORPUSCULAR VOLUME 94.1 fL (81-99); MONOCYTES # (AUTO) 0.9 (0.2-0.8); MONOCYTES % 9.1 % (4.4-11.3); NEUTROPHILS # (AUTO) 6.3 (2.1-6.9); NEUTROPHILS % 62.4 % (38.7-80.0); PLATELET COUNT 274 x10e3/uL (140-360); RED CELL DISTRIBUTION WIDTH 13.2 % (11.7-14.4)
--- NOTE | 2019-10-29 16:49 | Progress Note ---
DATE: Internal Medicine Progress Note SUBJECTIVE: The patient is doing well. No significant complaint. PHYSICAL EXAMINATION: HEART: Regular rhythm. Normal S1, S2 sound. LUNGS: Clear bilaterally. ABDOMEN: Soft. EXTREMITIES: Dressing on left foot. VITAL SIGNS: Blood pressure 136/78, temperature 38.6, heart rate 76 per minute, respiratory rate 19 per minute and O2 saturation 97%. LABORATORY DATA: On the CBC; white blood count 10.06, hemoglobin 10.7, hematocrit 34.8, and platelet count 274,000. On the BMP; sodium 140, potassium 3.8, chloride 103, CO2 of 28, BUN 10, creatinine 0.75, and glucose 96, last blood sugar was 107. Blood culture negative x72 hours. Wound culture showed Proteus mirabilis and Staphylococcus aureus that are pretty much sensitive to all antibiotics except nitrofurantoin. IMPRESSION: 1. Osteomyelitis of the foot. 2. Uncontrolled hypertension. 3. Anemia of chronic disease. 4. Sepsis. 5. Peripheral neuropathy. 6. Hypertensive heart disease. PLAN OF TREATMENT: We are going to continue cefepime 2 g IV twice a day, vancomycin 1.5 g IV twice a day. Continue Tylenol 650 mg q.6 hours as needed for mild pain and Lipitor 20 mg daily. Continue lisinopril 20 mg twice a day, metformin 500 twice a day, and methadone 40 mg twice a day. Continue to monitor blood sugar before meals and at bedtime. MD AUDI Shearer/BREANNA /[id number]
[2019-10-29] MEDS: ATORVASTATIN 20 MG TAB PO SCH (21:50)
--- NOTE | 2019-10-29 21:50 | NUR ---
PATIENT IN BED, NO SIGNS OF DISTRESS NOTED. NEW PICC LINE INTACT WITH IV ANTIBIOTICS ARE RUNNING AT ORDERED RATE AND PATIENT VOICES NO PAIN AT THIS TIME. LEFT FOOT IS WRAPPED, DRESSING IS CLEAN, DRY, AND INTACT. PATIENT IS GETTING READY FOR SHOWER AND IS AWARE OF PROCEDURE TOMORROW MORNING. BED IS IN LOWEST POSITION, BOTH SIDE RAILS ARE UP, CALL LIGHT IS WITHIN EASY REACH, WILL CONTINUE TO MONITOR.
--- NOTE | 2019-10-29 22:00 | NUR ---
consultation infectious disease consult Patient seen and examined chart reviewed Events noted Chief complaint My left foot is infected" HISTORY OF PRESENT ILLNESS: This is a 64-year-old white man, who presents to [facility] with a 4-5 day history of worsening right foot redness, pain and swelling. the patient came to the emergency room he was seen by internal medicine patient is being admitted. The records revealed : The patient states that initially he began with an infected callus on the plantar aspect of his left foot. The patient states that in last couple of days the wound has become ulcerated and the surrounding erythema and swelling has worsened. He also complains of subjective fever. He denies any chills. The patient was seen by his type mapper, namely Dr. Galvan yesterday on Wednesday, October 25, 2019 and was sent to the [facility] Emergency Room. The patient had a plain film of the foot on admission of the left foot that revealed marked soft tissue swelling and probable ulceration of the 1st MTP of the left foot. The radiologist did not appreciate any obvious evidence of osteomyelitis. In the emergency room patient [place] [id number] with 79% segmented neutrophils. Hemoglobin 12 g/dL. Platelet count 254,000. Sedimentation rate 91. The patient's BUN and creatinine are 15 and 0.93 respectively. Potassium is 3.3. The patient was found to have hemoglobin A1c of 8%. The patient's LDL cholesterol is 62 mg/dL. Triglycerides 165 mg/dL. AST and ALT of 46 and 31 respectively. The patient was admitted for further evaluation and treatment. , the left plantar abscess was incised and drained. Apparently, copious amount of brownish purulent blood tinged drained from this foot abscess. Cultures were sent from the type mapper's office. patient was sent here where he is being admitted to start IV antibiotic Cultures are not available but laboratory data reviewed X-ray and MRI reviewed plans for surgery on Wednesday also noted REVIEW OF SYSTEMS: All are within normal limits except for mentioned above GENERAL: Weight has been stable. He has had fever for past few days. No chills. HEENT: No headaches. No visual changes. CARDIOVASCULAR/RESPIRATORY: No chest pain. No shortness of breath. No cough. GI: No nausea, vomiting, or constipation. : No dysuria, hematuria, or incontinence. Denies any nocturia. NEUROMUSCULAR: The patient has severe neuropathy in his bilateral feet and is currently on methadone treatment for pain control concerning this condition. The patient has worsening redness, swelling and pain in the left foot for the past 4-5 days. ALLERGIES: NO KNOWN DRUG ALLERGIES. HOME MEDICATIONS: 1. Atorvastatin 40 mg at bedtime. 2. Lisinopril 20 mg daily. 3. Methadone 40 mg b.i.d. 4. Metoprolol succinate 25 mg daily. 5. Diazepam 5 mg daily prn anxiety. PAST SURGICAL HISTORY: 1. Right inguinal hernia repair. 2. Tonsillectomy. FAMILY HISTORY: His mother suffered from type 2 diabetes mellitus with severe diabetic peripheral neuropathy. His mother also suffered from recurrent diabetic foot ulcers. His mother from congestive heart failure and chronic kidney disease. SOCIAL HISTORY: He is a . He is caring for his two teenage grandchildren. He smokes tobacco sporadically, but chews tobacco on a regular basis. The patient drinks alcohol rarely. The patient is retired. PAST MEDICAL HISTORY: 1. Hypertensive heart disease. 2. Severe peripheral neuropathy. 3. Type 2 diabetes mellitus. 4. Hyperlipidemia. 5. Mild obesity. 6. Tobacco use. 7. Lumbar disc disease. Physical examination Patient is alert oriented does not seem to be in acute distress but stable afebrile HEENT normocephalic not pale not icteric neck supple no lymphadenopathy Chest clear bilateral Heart S1-S2 Abdomen soft pulse are present extremities no edema skin there is no rash The foot dressing was noted impression Osteomyelitis of the left foot Is growing gram-positive and gram-negative is currently on vancomycin and cefepime await culture and sensitivity Surgery is going on Wednesday will discuss with podiatry The final recommendations on antibiotic depending on the cultures and surgery and progress of the patient Vascular workup is recommended were discussed with internal medicine if not done recently
[2019-10-30] VITALS (8 sets, daily range): BP systolic 115–153; BP diastolic 65–98
[2019-10-30 05:35] LABS: BASOPHILS % 0.4 % (0.0-1.0); EOSINOPHILS # (AUTO) 0.3 (0.0-0.4); EOSINOPHILS % 2.9 % (0.0-6.0); HEMATOCRIT 32.2 % (38.2-49.6); LYMPHOCYTES # (AUTO) 2.5 (1.0-3.2); LYMPHOCYTES % 22.8 % (18.0-39.1); MEAN CORPUSCULAR HEMOGLOBIN 31.4 pg (28-32); MEAN CORPUSCULAR HGB CONC 34.2 g/dL (31-35); MONOCYTES # (AUTO) 0.9 (0.2-0.8); MONOCYTES % 7.8 % (4.4-11.3); NEUTROPHILS # (AUTO) 7.1 (2.1-6.9); NEUTROPHILS % 64.9 % (38.7-80.0); PLATELET COUNT 257 x10e3/uL (140-360); RED CELL DISTRIBUTION WIDTH 13.1 % (11.7-14.4)
[2019-10-30 05:53] LABS: ALANINE AMINOTRANSFERASE 33 IU/L (0-55); ALBUMIN 2.2 g/dL (3.5-5.0); ALBUMIN/GLOBULIN RATIO 0.5 (0.8-2.0); ALKALINE PHOSPHATASE 98 IU/L (40-150); ANION GAP 10.3 mmol/L (8-16); BLOOD UREA NITROGEN 11 mg/dL (7-26); BUN/CREATININE RATIO 14 (6-25); CALCIUM 8.3 mg/dL (8.4-10.2); CARBON DIOXIDE 28 mmol/L (22-29); CHLORIDE 102 mmol/L (98-107); CREATININE, SERUM 0.76 mg/dL (0.72-1.25); EST GLOMERULAR FILTRATION RATE > 60 ML/MIN (60-); GLUCOSE 92 mg/dL (74-118); POTASSIUM 3.3 mmol/L (3.5-5.1); SODIUM 137 mmol/L (136-145)
--- NOTE | 2019-10-30 06:09 | NUR ---
PATIENT HAS LEFT FOR PROCEDURE, NO SIGNS OF DISTRESS NOTED.
[2019-10-30] MEDS ORDERED: VANCOMYCIN HCL 1 GM VIAL ONE (06:31)
[2019-10-30] MEDS ORDERED: DEXAMETHASONE SOD PHOS INJ 4 MG/ML VIAL ONE (06:31)
[2019-10-30] MEDS ORDERED: BUPIVACAINE HCL 0.5% INJ 30 ML VIAL INJ ONE (06:31)
[2019-10-30] MEDS ORDERED: BACITRACIN 50,000 UNIT VIAL ONE (06:31)
--- NOTE | 2019-10-30 07:00 | NUR ---
SHIFT REPORT RECEIVED FROM THE MEDICAL AFFAIRS SPECIALIST RN. PT IS AT OR PER THE REPORT.
--- NOTE | 2019-10-30 07:15 | NUR ---
infectious disease progress note Patient seen and examined chart reviewed medication reviewed also W data reviewed cultures no swelling noted noted Patient with no new complaints Patient is alert oriented vitals stable afebrile HEENT normocephalic not. Check neck supple chest clear bilateral heart S1-S2 Abdomen soft both are present extremities no edema Foot noted Please refer to the wound care Osteomyelitis Diabetes. Sepsis secondary to left foot osteomyelitis with surrounding cellulitis. 2. Left foot (1st metatarsal) osteomyelitis with surrounding cellulitis. 3. Severe idiopathic peripheral neuropathy. 4. Type 2 diabetes mellitus. 5. Hypertensive heart disease. 6. Situational depression/major depressive disorder. hypercholesterolemia Will changed to Zosyn Surgery today Obtain intraoperative surgery we will follow
[2019-10-30] MEDS: INSULIN LISPRO 100 UNIT/1 ML 3ML VIAL SQ SCH ×4 (07:30→19:57)
--- NOTE | 2019-10-30 08:10 | NUR ---
PT BACK TO THE UNIT FROM PACU. PT LEFT FOOT DRESSING CDI. ELEVATED BLE WITH PILLOWS. EDUCATED PT ABOUT FALL PRECAUTIONS. PT VERBALIZED UNDERSTANDING. BED IS LOW AND LOCKED. SIDE RAILS X2. CALL LIGHT WITH IN EASY REACH. BED ALARM IS ON. ALL SAFETY MEASURES IN PLACE. PT DENIES NEEDS AT THIS TIME.
[2019-10-30] MEDS: MORPHINE SULFATE 2 MG/ML SYR 1ML ONE ×2 (08:12→09:26)
--- NOTE | 2019-10-30 08:30 | NUR ---
PAGED DR. MONTES REGARDING PT K LEVEL 3.3.
--- NOTE | 2019-10-30 08:54 | Diagnostic Imaging Report ---
EXAMINATION: FOOT LEFT AP LAT INDICATION: Postoperative COMPARISON: None FINDINGS: AP and lateral images of the left foot demonstrate postoperative findings of partial first ray amputation at the level of the first metatarsal shaft. Radiopaque densities in the amputation bed consistent with graft material. Small amount of subcutaneous soft tissue emphysema may postoperative. No unexpected fracture. Alignment appears anatomic. IMPRESSION: Postoperative findings of partial first ray amputation. Signed by: Corey Munson MD on 10/30/2019 8:50 AM
[2019-10-30] MEDS: METFORMIN HCL 500 MG TAB PO SCH ×2 (09:00→16:31)
[2019-10-30] MEDS: METHADONE HCL 10 MG TAB PO SCH ×2 (09:27→16:32)
[2019-10-30] MEDS ORDERED: POTASSIUM CHLORIDE 10MEQ EA PO SCH ×2 (09:30→11:30)
[2019-10-30] MEDS: LISINOPRIL 20 MG TAB PO SCH ×2 (09:35→16:32)
--- NOTE | 2019-10-30 10:13 | NUR ---
Spoke to pt regarding need for outpatient IV antibiotics. Pt is agreeable. Choice letter signed for 1. [facility]. [facility] 3. [facility] Copy of choice letter given to pt. Signed copy placed in chart. Will send referral once order for IV abx received.
--- NOTE | 2019-10-30 10:55 | NUR ---
Received IV abx order. Referral faxed to [facility] at [phone] / . Megan with [facility] was informed of referral and anticipated dc for tomorrow.
--- NOTE | 2019-10-30 11:18 | Progress Note ---
DATE: 10/30/2019 CHIEF COMPLAINT/HISTORY OF PRESENT ILLNESS: This is a 64-year-old white man, whose primary treating diagnosis is left diabetic foot ulcer with surrounding cellulitis and osteomyelitis. Today, the patient underwent amputation of the left great toe as well as distal aspect of the left first metatarsal bone. The patient tolerated the surgery quite well. The patient's white blood cell count today is 10,900 with 64% segmented neutrophils. The patient's hemoglobin is 11 g/dL. The patient's vancomycin trough history is 18.1. Today, the patient was found to have potassium of 3.3. The patient's AST and ALT were 42 and 33, respectively. The patient's albumin level was low at 2.2 g/dL. REVIEW OF SYSTEMS: As per HPI. PHYSICAL EXAMINATION: GENERAL: He is awake, alert, and fully oriented. He is pleasant and cooperative with exam. VITAL SIGNS: Height 6 feet 2 inches, weighs 206 pounds, BMI 33. Blood pressure is 126/80, pulse 86, respiratory rate 18, oxygen saturation 97% on room air, and temperature 98.2. INTEGUMENT: Skin is warm and dry. Slight pallor. No jaundice or diaphoresis. HEENT: Anicteric sclerae. Moist mucous membranes. NECK: Supple. CARDIOVASCULAR: Distant heart sounds. Regular rate and rhythm. LUNGS: No rales. No rhonchi. No wheezes. ABDOMEN: Mildly obesity and benign. EXTREMITIES: The patient's left foot is currently dressed. NEUROLOGIC: Intact except he has no pinprick sensation to plantar aspect of his feet. DIAGNOSES: 1. Left diabetic foot abscess with cellulitis/osteomyelitis. 2. Status post left great toe/distal first metatarsal amputation. 3. Type 2 diabetes mellitus. 4. Severe peripheral neuropathy. 5. Lpwsdjcq-sc-xhqvrr protein-calorie malnutrition. 6. Hypertensive heart disease. 7. Mild obesity, BMI 33. PLAN: 1. Replete potassium. 2. Continue intravenous antibiotics. 3. Arrange outpatient intravenous antibiotic therapy, specifically vancomycin 1.5 g intravenous daily for four weeks, coupled with oral levofloxacin 750 mg daily for a total of 6 weeks. 4. We ordered arterial Doppler ultrasound of the lower extremities for peripheral artery disease. 5. Appreciate Infectious Disease input. 6. Discharge planning for tomorrow, Thursday October 31, 2019. MD BO Mercer /[id number]
[2019-10-30] MEDS: PIPER-TAZ 3.375 GM 50 ML IV SCH ×3 (11:57→23:45)
--- NOTE | 2019-10-30 12:23 | Operative Report ---
DATE OF PROCEDURE: 10/30/2019 SURGEON: Tierney Cornejo DPM PREOPERATIVE DIAGNOSES: Left foot osteomyelitis with abscess formation, septic joint 1st metatarsophalangeal joint. POSTOPERATIVE DIAGNOSES: Left foot osteomyelitis with abscess formation, septic joint 1st metatarsophalangeal joint. PLANNED PROCEDURE: Partial 1st ray amputation with debridement of all necrotic soft tissue and bone with implantation of antibiotic beads. BEAUTICIAN APPRENTICE: Tierney Cornejo DPM. ANESTHESIA: General with a postoperative block consisting of 10 mL of 0.5% Marcaine plain. HEMOSTASIS: Pneumatic thigh tourniquet set at 350 mmHg for a total time of approximately 30 minutes. MATERIALS: 1. Vancomycin. 2. Impregnated antibiotic beads. 3. 3-0 nylon. ESTIMATED BLOOD LOSS: Less than 10 mL. PATHOLOGY: Left partial 1st ray sent for gross specimen. DESCRIPTION OF PROCEDURE: The patient was seen in the preoperative waiting area where the correct procedure was site were identified. The patient was brought to the operating room and placed on the operating table in supine position. General anesthesia was initiated. At this time, a well-padded pneumatic tourniquet was placed about the patient's left thigh. The left foot, ankle, and leg were then scrubbed, prepped, and draped in the usual aseptic manner. The left foot, ankle, and leg were exsanguinated with an Esmarch bandage and the pneumatic thigh tourniquet was inflated to 350 mmHg for a total time of approximately 30 minutes. Attention was directed to the medial aspect of the patient's left foot, where a large deep ulceration is noted to the plantar aspect of the left 1st metatarsophalangeal joint and a previous incision site was noted to the dorsal aspect of the left 1st metatarsophalangeal joint. There continues to be greater than 2 cm of periwound erythema, edema and warmth to the level of approximately the ankle joint. The decision was made to proceed with a partial 1st ray amputation at this point. Utilizing a #15 blade, a linear incision was made along the dorsal medial aspect of the patient's left 1st metatarsal extending to the metatarsophalangeal joint. At which point, became two converging semi-elliptical incisions at level of the joint converging on the lateral aspect of the joint. Utilizing a bone clamp, the distal hallux was grasped and disarticulated the joint. There was noted to be a significant amount of purulent drainage. The proximal phalanx of the hallux was completely soft, necrotic and grayish discoloration. This was passed off to the back table. The incision site was then carried proximally to the level of approximately the midshaft 1st metatarsal which was again soft necrotic to the level approximately midshaft. Utilizing a sagittal saw, an osteotomy was performed in the midshaft of the 1st metatarsal the distal aspect was disarticulated and passed off to the back table. Next, utilizing a 15 blade, the wound was debrided of all necrotic and devitalized tissue including the flexor hallucis longus, extensor hallucis longus tendons and both sesamoid bones. These were all sent for gross specimen to pathology. The wound was then copiously irrigated with sterile saline mixed with bacitracin. Next, per manufacture protocol, vancomycin impregnated antibiotic beads were placed in the open wound. Utilizing 3-0 nylon, the plantar wound was debrided, excised and reapproximated utilizing simple interrupted sutures with 3-0 nylon. Next, the dorsal wound was then debrided of all necrotic and devitalized tissue. The wound edges were prepped for closure by removing all dog-ears and debulking fat. The wound was then reapproximated utilizing simple interrupted sutures with 3-0 nylon. The incision site was then dressed with Adaptic, 4x4s, Kerlix, Richi wrap, and a postop shoe. The patient was then transferred to the postoperative recovery unit with vital signs stable and vascular status intact. The patient was then transferred back to the floor for postoperative monitoring, pain control, and IV antibiotics. The Podiatry Service will continue to monitor as an inpatient. The patient tolerated the procedure and anesthesia well. The patient was transferred to the postoperative recovery unit with vital signs stable and vascular status intact. The patient was monitored there for a short period time before being sent home with the following written and oral instructions. 1. Keep the dressing clean, dry, and intact. 2. The patient is to remain nonweightbearing in a postop shoe, to avoid excessive ambulation until being seen in the office. Dictated by Tierney Cornejo DPM S F (ARELI Martínez/BREANNA /[id number]
[2019-10-30] MEDS ORDERED: FENTANYL CITRATE/PF 100MCG/2 ML INJ ONE (14:39)
--- NOTE | 2019-10-30 19:00 | NUR ---
RECEIVED PATIENT IN BEDSIDE SHIFT REPORT. PATIENT RESTING IN BED AT THIS TIME. NO PAIN REPORTED. REMINDED PATIENT TO KEEP FOOT ELEVATED ON A PILLOW. NO S&S OF DISTRESS NOTED. BED LOCKED IN LOWEST POSITION, SIDE RAILS UXP2, CALL LIGHT IN REACH.
--- NOTE | 2019-10-30 19:04 | NUR ---
BEDSIDE SHIFT REPORT RECEIVED FROM THE REGULATORY SUBMISSIONS ASSOCIATE RN. PT DENIED FURTHER NEEDS.
[2019-10-30] MEDS: ATORVASTATIN 20 MG TAB PO SCH (20:34)
[2019-10-30] MEDS: ACETAMINOPHEN 325 MG TAB PO PRN (23:50)
[2019-10-31] VITALS: BP 139/96
[2019-10-31 04:00] VITALS: BP_SYST 117; BP_SYST 146; BP_DIAS 69; BP_DIAS 97
[2019-10-31] MEDS: PIPER-TAZ 3.375 GM 50 ML IV SCH (05:56)
[2019-10-31 05:59] LABS: BASOPHILS % 0.4 % (0.0-1.0); EOSINOPHILS # (AUTO) 0.2 (0.0-0.4); EOSINOPHILS % 2.4 % (0.0-6.0); HEMATOCRIT 33.6 % (38.2-49.6); HEMOGLOBIN 10.8 g/dL (14.0-18.0); LYMPHOCYTES % 30.4 % (18.0-39.1); MEAN CORPUSCULAR HEMOGLOBIN 30.8 pg (28-32); MEAN CORPUSCULAR HGB CONC 32.1 g/dL (31-35); MEAN CORPUSCULAR VOLUME 95.7 fL (81-99); MONOCYTES # (AUTO) 0.7 (0.2-0.8); MONOCYTES % 7.3 % (4.4-11.3); NEUTROPHILS # (AUTO) 5.7 (2.1-6.9); NEUTROPHILS % 58.1 % (38.7-80.0); PLATELET COUNT 261 x10e3/uL (140-360); RED BLOOD COUNT 3.51 x10e6/uL (4.3-5.7); RED CELL DISTRIBUTION WIDTH 13.4 % (11.7-14.4)
[2019-10-31 06:18] LABS: ANION GAP 11.9 mmol/L (8-16); BLOOD UREA NITROGEN 11 mg/dL (7-26); BUN/CREATININE RATIO 14 (6-25); CALCIUM 8.4 mg/dL (8.4-10.2); CARBON DIOXIDE 27 mmol/L (22-29); CHLORIDE 104 mmol/L (98-107); CREATININE, SERUM 0.81 mg/dL (0.72-1.25); EST GLOMERULAR FILTRATION RATE > 60 ML/MIN (60-); GLUCOSE 83 mg/dL (74-118); POTASSIUM 3.9 mmol/L (3.5-5.1); SODIUM 139 mmol/L (136-145)
[2019-10-31] MEDS: INSULIN LISPRO 100 UNIT/1 ML 3ML VIAL SQ SCH (07:30)
[2019-10-31 07:52] VITALS: BP 148/80
--- NOTE | 2019-10-31 08:59 | NUR ---
HIMANSHU Randhawa with [facility] will be here between 10 and 11 today to provide bedside teaching to pt.
[2019-10-31] MEDS: METFORMIN HCL 500 MG TAB PO SCH (09:17)
[2019-10-31] MEDS: METHADONE HCL 10 MG TAB PO SCH (09:18)
[2019-10-31] MEDS: LISINOPRIL 20 MG TAB PO SCH (09:18)
[2019-10-31 09:59] VITALS: BP 148/80
--- NOTE | 2019-10-31 11:13 | Discharge Summary ---
ADMIT DIAGNOSES: 1. Sepsis secondary to left foot abscess with surrounding cellulitis. 2. Left foot abscess/ulcer with surrounding cellulitis. 3. Type 2 diabetes mellitus. 4. Severe peripheral neuropathy. 5. Hypertensive heart disease. 6. Mild obesity, BMI 33. DISCHARGE DIAGNOSES: 1. Sepsis secondary to acute left foot osteomyelitis with surrounding cellulitis, resolved. 2. Status post extensive incision and drainage of left foot abscess. 3. 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 4. Proteus mirabilis and methicillin-sensitive Staphylococcus aureus infected left foot osteomyelitis with surrounding cellulitis, resolving. 5. Dyslipidemia. 6. Hypertensive heart disease. 7. Type 2 diabetes mellitus. 8. Severe peripheral neuropathy. 9. Minimal left lower leg peripheral artery disease. 10. Mild obesity, BMI 33. HOSPITAL COURSE: This is a 64-year-old white man, who was initially admitted to [facility] with diagnosis of sepsis secondary to diabetic left foot abscess with surrounding cellulitis. During this hospitalization he was seen by Podiatry namely Dr. Galvan, who initially performed extensive incision and drainage of the left foot abscess. Copious amount of purulent material was drained from this abscess. The cultures grew Proteus mirabilis and methicillin-sensitive Staphylococcus aureus bacterial species. The patient improved clinically with intravenous vancomycin and cefepime. The patient was also seen by Infectious Disease specialist, Dr. Valiente, during this hospitalization. The patient was found to have a sedimentation rate of 91 and a C-reactive protein level of 117. During this hospitalization, the patient was found to have a hemoglobin A1c of 8%. Moreover, the patient was found to have LDL cholesterol 62 mg/dL and triglyceride level 165 mg/dL. HDL was 12 mg/dL. The patient's albumin level was 2.5 g/dL during this hospitalization. The patient started on metformin 500 mg twice a day for glucose control, which was quite effective. Also, during this hospitalization, the patient underwent MRI of the left foot, which revealed extensive osteomyelitis of the left 1st metatarsal bone that encompassed the 1st proximal phalanx, 1st metatarsal as well as involvement of the tendons. Moreover, the MRI revealed findings consistent with septic joint of the 1st metatarsal joint. The patient tolerated this surgery well. Thus during this hospitalization the patient underwent amputation of the left 1st ray with debridement of all necrotic soft tissue and bone with implantation of antibiotic beads (vancomycin). The patient tolerated surgery quite well. During this hospitalization, the patient had a peripherally inserted central catheter placed with expectation of a long-term outpatient intravenous antibiotic therapy. During this hospitalization, the patient underwent an arterial Doppler ultrasound of the lower extremities that revealed normal flow on the right lower extremity, but did reveal some below the knee disease in the left, but overall flow was adequate. The gas furnace installer who interpreted the left lower extremity arterial Doppler ultrasound recommended outpatient angiography if a diabetic foot ulcer was present. Prior to discharge, outpatient intravenous antibiotic therapy was arranged through an infusion Patient Home Monitoring. CONDITION ON DISCHARGE: Stable. DISCHARGE MEDICATIONS: 1. Vancomycin 1.5 g intravenous daily for four weeks. 2. Levofloxacin 750 mg orally daily for six weeks. 3. Metformin 500 mg b.i.d. 4. Lisinopril 20 mg b.i.d. 5. Aspirin 81 mg daily. 6. Atorvastatin 20 mg q.h.s. 7. Methadone 40 mg b.i.d. FOLLOWUP INSTRUCTIONS: The patient instructed to follow up with Dr. Galvan within 5 days and with myself, Dr. Schwarz within two weeks. Once again, outpatient intravenous antibiotic therapy was arranged. MD CITLALY Mercer/BREANNA /[id number] MTDD
[2019-10-31] MEDS ORDERED: ONDANSETRON HCL INJ 2MG/ML 2ML 2 MG/ML VIAL IV ONE (12:17)
[2019-10-31] MEDS ORDERED: LIDOCAINE HCL 2% LOCAL INJ 5 ML SDV VIAL INJ ONE (12:17)
[2019-10-31] MEDS ORDERED: PROPOFOL IV EMULSION 10 MG/ML 20 ML VIAL IV ONE (12:17)
--- NOTE | 2019-10-31 12:18 | NUR ---
Discharge education provided emphasizing the need to follow-up with PCP and other consulting doctors. Verbalized understanding. Discharge packet and home medications prescription given. Right upper arm PICC in placed, intact with alcohol impregnated cover on. Patient is going home with the PICC line and home abx. Transported via wheelchair to private vehicle with all personal belongings are taken.
[2019-10-31 12:25] VITALS: BP 156/90
--- NOTE | 2019-10-31 12:40 | NUR ---
Syd[place], RN with [facility] provided bedside teaching to pt. Medications will be delivered this evening. Home health is set up with [facility] 11/01/19. . Per Dr. Cornejo, pt to leave dressing intact, Follow up in office in 5-7 days. Home messi information given to pt and asked that pt call HH if he does not hear from them.
== END 2019-10-31 12:18 | disposition home or self-care (01) | DRG 853 ==
LOC: MED/SURG2 18:07
PROVIDERS: ADMIT Internal Medicine; ATTEND Internal Medicine
PROC: 0JBR0ZZ Excision of Left Foot Subcutaneous Tissue and Fascia, Open Approach (ICD-10-PCS; 2019-10-26)
PROC: 0J9R0ZZ Drainage of Left Foot Subcutaneous Tissue and Fascia, Open Approach (ICD-10-PCS; principal; 2019-10-26 11:30)
PROC: 02HV33Z Insertion of Infusion Device into Superior Vena Cava, Percutaneous Approach (ICD-10-PCS; 2019-10-28)
PROC: 0Y6Q0Z0 Detachment at Left 1st Toe, Complete, Open Approach (ICD-10-PCS; 2019-10-30)
PROC: 3E0V329 Introduction of Other Anti-infective into Bones, Percutaneous Approach (ICD-10-PCS; 2019-10-30)
DX: A41.9 Sepsis, unspecified organism (principal); E43 Unspecified severe protein-calorie malnutrition; L97.429 Non-pressure chronic ulcer of left heel and midfoot with unspecified severity; L03.116 Cellulitis of left lower limb; M86.8X7 Other osteomyelitis, ankle and foot; Z16.24 Resistance to multiple antibiotics; E13.621 Other specified diabetes mellitus with foot ulcer; Z11.59 Encounter for screening for other viral diseases; E11.40 Type 2 diabetes mellitus with diabetic neuropathy, unspecified; F17.200 Nicotine dependence, unspecified, uncomplicated; E66.01 Morbid (severe) obesity due to excess calories; Z68.33 Body mass index [BMI] 33.0-33.9, adult; I11.9 Hypertensive heart disease without heart failure; D63.8 Anemia in other chronic diseases classified elsewhere; E11.69 Type 2 diabetes mellitus with other specified complication; B96.4 Proteus (mirabilis) (morganii) as the cause of diseases classified elsewhere; B95.61 Methicillin susceptible Staphylococcus aureus infection as the cause of diseases classified elsewhere; F43.21 Adjustment disorder with depressed mood
CPT/HCPCS: 36415; 36569; 71045; 80048; 80053; 80061; 80202; 82948; 83036; 83605; 85025; 85651; 86140; 87040; 87071; 87075; 87186; 87205; 88304; 88307; 88311; 93925; 97139; C1713; J0692; J1100; J1885; J2001; J2250; J2270; J2405; J2543; J3010; J3370; J7050; U0002

== ENCOUNTER → 2020-08-15 | Outpatient (CLI) | payer BC ==
[~2020-08-15] MED LIST changes: +ATORVASTATIN CA20 MG PO; +LISINOPRIL5 MG PO; +METHADONE HCL40 MG PO; +METOPROLOL PO; +METOPROLOL SUCC25 MG PO
== END ==
LOC: RAD 16:42
PROVIDERS: ATTEND Internal Medicine
DX: M16.11 Unilateral primary osteoarthritis, right hip (principal)

== ENCOUNTER → 2020-09-30 | Outpatient (CLI) | payer BC | LOC: RAD 13:20 | PROVIDERS: ATTEND Internal Medicine | DX: Z01.818 Encounter for other preprocedural examination (principal) | CPT/HCPCS: 71046 ==

== ENCOUNTER → 2020-10-10 | Outpatient (CLI) | payer BC ==
[~2020-10-10] MED LIST changes: +ASPIRIN81 MG PO; +CELECOXIB 200 MG CAP ONE; +DEXAMETHASONE SOD PHOS 10 MG/1 ML VIAL ONE; +GABAPENTIN 300 MG CAP ONE; +ROPIVACAINE 246.25 MG, EPINEPHRINE HCL 1:1000 1ML 0.5 MG, CLONIDINE HCL 0.08 MG, KETORO... INJ ONE; +SODIUM CHLORIDE 0.9% 500ML 0 ML ONE; +SODIUM CHLORIDE 0.9% 50ML 100 ML ONE; +TRANEXAMIC ACID 1,000 MG/10 ML ML ONE; +Vancomycin IV 0 MG ONE
== END ==
LOC: LAB 10:30 → OR 10-15 06:25 → EDSTATUS 10-15 07:30
PROVIDERS: ATTEND Specialist
DX: M16.11 Unilateral primary osteoarthritis, right hip (principal); Z01.812 Encounter for preprocedural laboratory examination; Z20.822 Contact with and (suspected) exposure to COVID-19; Z53.8 Procedure and treatment not carried out for other reasons
CPT/HCPCS: 86850; 86900; 86920; J0171; J0690; J1100; J1885; J2795; J3370; J7040; U0002

== ENCOUNTER → 2020-10-10 | Outpatient (CLI) | payer BC ==
[~2020-10-10] MED LIST changes: -CELECOXIB 200 MG CAP ONE; -DEXAMETHASONE SOD PHOS 10 MG/1 ML VIAL ONE; -GABAPENTIN 300 MG CAP ONE; -ROPIVACAINE 246.25 MG, EPINEPHRINE HCL 1:1000 1ML 0.5 MG, CLONIDINE HCL 0.08 MG, KETORO... INJ ONE; -SODIUM CHLORIDE 0.9% 500ML 0 ML ONE; -SODIUM CHLORIDE 0.9% 50ML 100 ML ONE; -TRANEXAMIC ACID 1,000 MG/10 ML ML ONE; -Vancomycin IV 0 MG ONE
== END ==
LOC: RAD 10:59
PROVIDERS: ATTEND Internal Medicine
DX: R91.1 Solitary pulmonary nodule (principal)
CPT/HCPCS: 71046

== ENCOUNTER → 2020-10-18 | Day surgery (SDC) | payer BC ==
[~2020-10-18] MED LIST changes: +BUPIVACAINE HCL 0.5% INJ 30 ML VIAL INJ ONE; +DEXAMETHASONE SOD PHOS INJ 4 MG/ML VIAL ONE; +LIDOCAINE HCL 2% LOCAL INJ 5 ML SDV VIAL INJ ONE; +ONDANSETRON HCL INJ 2MG/ML 2ML 2 MG/ML VIAL ONE; +POVIDONE IODINE 0.05% 0.05 % ML PO ONE; +PROPOFOL IV EMULSION 10 MG/ML 20 ML VIAL ONE; +SODIUM CHLORIDE 0.9% 250ML 250 ML ONE; +Vancomycin IV 1 GM VIAL ONE
[2020-10-18 08:10] VITALS: BP 123/71
== END | disposition home or self-care (01) ==
LOC: OR 05:33
PROVIDERS: ATTEND Podiatrist Foot & Ankle Surgery
DX: M86.072 Acute hematogenous osteomyelitis, left ankle and foot (principal); Z01.812 Encounter for preprocedural laboratory examination; Z20.822 Contact with and (suspected) exposure to COVID-19; I10 Essential (primary) hypertension
CPT/HCPCS: 28805; 88304; 88311; J3370; J7050; U0002; J1100; J2001; J2405

== ENCOUNTER → 2021-01-27 | Outpatient (CLI) | payer BC ==
[~2021-01-27] MED LIST changes: -BUPIVACAINE HCL 0.5% INJ 30 ML VIAL INJ ONE; -DEXAMETHASONE SOD PHOS INJ 4 MG/ML VIAL ONE; -LIDOCAINE HCL 2% LOCAL INJ 5 ML SDV VIAL INJ ONE; -ONDANSETRON HCL INJ 2MG/ML 2ML 2 MG/ML VIAL ONE; -POVIDONE IODINE 0.05% 0.05 % ML PO ONE; -PROPOFOL IV EMULSION 10 MG/ML 20 ML VIAL ONE; -SODIUM CHLORIDE 0.9% 250ML 250 ML ONE; -Vancomycin IV 1 GM VIAL ONE
== END ==
LOC: RAD 15:35
PROVIDERS: ATTEND Internal Medicine
DX: Z01.818 Encounter for other preprocedural examination (principal)
CPT/HCPCS: 71046

== ENCOUNTER 2021-02-17 08:47 | Observation (INO) | payer BC ==
[~2021-02-17] VITALS: Ht 188 cm; Wt 104.4 kg
[~2021-02-17 08:47] MED LIST changes: +AMLODIPINE BESY10 MG PO; +DIAZEPAM5 MG PO; +FLUOXETINE HCL20 MG PO; +ROPIVACAINE 246.25 MG, EPINEPHRINE HCL 1:1000 1ML 0.5 MG, CLONIDINE HCL 0.08 MG, KETORO... INJ ONE; +SODIUM CHLORIDE 0.9% 500ML 500 ML ONE; +TRANEXAMIC ACID 1,000 MG/10 ML ML ONE; +Vancomycin IV 1,000 MG ONE
[2021-02-17] MEDS ORDERED: GABAPENTIN 300 MG CAP ONE (09:45)
[2021-02-17] MEDS ORDERED: DEXAMETHASONE SOD PHOS 10 MG/1 ML VIAL ONE (09:45)
[2021-02-17] MEDS ORDERED: SODIUM CHLORIDE 0.9% 50ML 100 ML ONE (09:45)
[2021-02-17] MEDS ORDERED: CELECOXIB 200 MG CAP ONE (09:45)
[2021-02-17] MEDS ORDERED: BUPIVACAINE 7.5MG/ML /DEXTROSE 82.5MG/ML 2 ML AMP INJ ONE (10:03)
[2021-02-17] MEDS ORDERED: ZOLPIDEM TARTRATE 5 MG TAB PO PRN (12:30)
[2021-02-17] MEDS ORDERED: ONDANSETRON HCL INJ 2MG/ML 2ML 2 MG/ML VIAL IV PRN (12:30)
[2021-02-17] MEDS ORDERED: KETOROLAC TROMETHAMINE 30 MG/ML VIAL IV PRN (12:30)
[2021-02-17] MEDS ORDERED: ACETAMINOPHEN 650 MG SUPP PR PRN (12:30)
[2021-02-17] MEDS ORDERED: DOCUSATE SODIUM 100 MG CAP PO PRN (12:30)
[2021-02-17] MEDS ORDERED: HYDROCODONE/APAP 7.5MG-325MG 1 EA TAB PO PRN (12:30)
[2021-02-17] MEDS ORDERED: HYDROCODONE/APAP 5MG-325MG TAB PO PRN (12:30)
[2021-02-17] MEDS ORDERED: DIPHENHYDRAMINE HCL INJ 50 MG/ML VIAL IV PRN (12:30)
[2021-02-17] MEDS ORDERED: POVIDONE IODINE 0.05% 0.05 % ML PO ONE (12:46)
[2021-02-17] MEDS ORDERED: LIDOCAINE HCL 2% LOCAL INJ 5 ML SDV VIAL INJ ONE (12:46)
[2021-02-17] MEDS ORDERED: PROPOFOL IV EMULSION 10 MG/ML 20 ML VIAL ONE (12:46)
[2021-02-17] MEDS ORDERED: EPHEDRINE SULFATE INJ 50 MG/ML VIAL ONE (12:46)
[2021-02-17] MEDS ORDERED: PHENYLEPHRINE HCL 1% 10 MG/ML VIAL ONE (12:46)
[2021-02-17] MEDS ORDERED: SODIUM CHLORIDE 0.9% 1000ML 1,000 ML IV SCH (14:00)
[2021-02-17 14:01] VITALS: BP 100/58
[2021-02-17 15:03] VITALS: BP 108/68
[2021-02-17] MEDS ORDERED: ASPIRIN 325 MG TAB PO SCH (17:00)
[2021-02-17] MEDS ORDERED: CELECOXIB 200 MG CAP PO SCH (17:00)
[2021-02-17] MEDS ORDERED: Cefazolin 1 GM in SODIUM CHLORIDE 0.9% 50ML 50 ML IV SCH (19:00)
[2021-02-18] MEDS ORDERED: ACETAMINOPHEN 1000 MG/100 ML IV PRN (12:30)
== END 2021-02-17 18:25 | disposition home health service (06) ==
LOC: OR 08:47 → PACU V 12:20 → MED/SURG 13:16
PROVIDERS: ADMIT Specialist; ATTEND Specialist
DX: M16.11 Unilateral primary osteoarthritis, right hip (principal); E66.9 Obesity, unspecified; Z68.30 Body mass index [BMI] 30.0-30.9, adult; I10 Essential (primary) hypertension; Z01.812 Encounter for preprocedural laboratory examination; E78.5 Hyperlipidemia, unspecified; E11.40 Type 2 diabetes mellitus with diabetic neuropathy, unspecified; Z72.0 Tobacco use; M51.36 Other intervertebral disc degeneration, lumbar region; Z83.3 Family history of diabetes mellitus; Z82.49 Family history of ischemic heart disease and other diseases of the circulatory system; Z84.1 Family history of disorders of kidney and ureter; Z79.84 Long term (current) use of oral hypoglycemic drugs
CPT/HCPCS: 27130; 72170; 86850; 86900; 86920; 94799; 97110; 97116; 97161; 97530; G0378; J0171; J0690; J1100; J1885; J2795; J3370; J7040; U0002; C1713; C1776; J2001; J2370

== ENCOUNTER → 2021-07-25 | Outpatient (CLI) | payer BC ==
[~2021-07-25] MED LIST changes: -ROPIVACAINE 246.25 MG, EPINEPHRINE HCL 1:1000 1ML 0.5 MG, CLONIDINE HCL 0.08 MG, KETORO... INJ ONE; -SODIUM CHLORIDE 0.9% 500ML 500 ML ONE; -TRANEXAMIC ACID 1,000 MG/10 ML ML ONE; -Vancomycin IV 1,000 MG ONE
== END ==
LOC: RAD 12:15
PROVIDERS: ATTEND Internal Medicine
DX: J41.0 Simple chronic bronchitis (principal)
CPT/HCPCS: 71046